=== PATIENT | female | born 1955 | race Caucasian/White ===

== ENCOUNTER → 2020-05-16 | Outpatient (CLI) | payer OTHER ==
[2014-12-21 10:46] VITALS: BP 112/53
[~2020-05-16] MED LIST: ALPR0.5T6 PO; CRESTOR5 MG PO; METO25TA4 PO; TIOT18CA IH
--- NOTE | 2020-05-16 16:59 | CARD ---
MR#: [id number] Date of Study: 05/16/2020 Ordering Physician: CORI THORNTON, Referring Physician: CORI THORNTON, Tech: Radha Casas APPROVED REPORT EXAM: Two-dimensional and M-mode echocardiogram with Doppler and color Doppler. Other Information Quality : AverageHR: 70bpm INDICATION COPD Atrial Fibrillation RISK FACTORS Hyperlipidemia Smoking 2D DIMENSIONS RVDd2.6 (2.9-3.5cm)Left Atrium(2D)2.1 (1.6-4.0cm) IVSd0.7 (0.7-1.1cm)Aortic Root(2D)2.7 (2.0-3.7cm) LVDd4.2 (3.9-5.9cm)LVOT Diameter2.0 (1.8-2.4cm) PWd0.7 (0.7-1.1cm)LVDs2.1 (2.5-4.0cm) FS (%) 50.6 %SV66.3 ml Aortic Valve AoV Peak Rafal.143.4cm/sAoV VTI31.1cm AO Peak GR.8.2mmHgLVOT Peak Rafal.131.0cm/s LVOT VTI 29.88cmAO Mean GR.4mmHg LAYLA (VMAX)2.21lx9IWD (VTI)3.05cm2 AI P 1/2 Oulz309co Mitral Valve MV E Cxjvdnyj07.5cm/sMV E Peak Gr.86mmHg MV DECEL [id number] A Hhgyqrsm611.5cm/s MV E Mean Gr.4mmHgMV CYJ89fr E/A Ratio0.8MVA (PHT)3.18cm2 TDI E/Lateral E'22.4E/Medial E'12.5 Pulmonary Valve PV Peak Ruhfzgrm95.6cm/sPV Peak Grad.2mmHg Tricuspid Valve TR P. Vugoxndg100lf/sRAP PORTJVQN0yvAw TR Peak Gr.41gsUeYPOQ25enDg Pulmonary Vein S1 Ovfhzkyi87.2cm/sD2 Vnskfjnk74.8cm/s PVa [id number] LEFT VENTRICLE The left ventricle is normal size. There is borderline concentric left ventricular hypertrophy. The l eft ventricular systolic function is low normal. The Ejection Fraction is estimated at 50%. There is normal LV segmental wall motion. Transmitral Doppler flow pattern is Grade I-abnormal relaxation selin coby. RIGHT VENTRICLE The right ventricle is normal size. There is normal right ventricular wall thickness. The right ventr icular systolic function is normal. ATRIA The left atrium size is normal. The right atrium size is normal. The interatrial septum is intact wit h no evidence for an atrial septal defect or patent foramen ovale as noted on 2-D or Doppler imaging. AORTIC VALVE The aortic valve is thickened but opens well. Doppler and Color Flow revealed mild aortic regurgitati on. There is no significant aortic valvular stenosis. Calculated aortic valve area is 2.95 cm2 with m aximum pressure gradient of 10 mmHg and mean pressure gradient of 5 mmHg. MITRAL VALVE The mitral valve is thickened but opens well. There is no evidence of mitral valve prolapse. There is no mitral valve stenosis. Doppler and Color-flow revealed trace to mild mitral regurgitation. TRICUSPID VALVE The tricuspid valve is normal in structure and function. Doppler and Color Flow revealed trace tricus pid regurgitation with an estimated PAP of 30 mmHg. There is no tricuspid valve stenosis. PULMONIC VALVE The pulmonic valve is not well visualized. Doppler and Color Flow revealed trace pulmonic valvular re gurgitation. GREAT VESSELS The aortic root is normal in size. The IVC is normal in size and collapses >50% with inspiration. PERICARDIAL EFFUSION There is no evidence of significant pericardial effusion. Critical Notification Critical Value: No <Conclusion> The left ventricle is normal size. The left ventricular systolic function is low normal. The Ejection Fraction is estimated at 50%. There is borderline concentric left ventricular hypertrophy. Doppler and Color Flow revealed mild aortic regurgitation. There is no significant aortic valvular stenosis. Doppler and Color-flow revealed trace to mild mitral regurgitation. Doppler and Color Flow revealed trace tricuspid regurgitation with an estimated PAP of 30 mmHg. Signed by : Cori Thornton MD Electronically Approved : 05/16/2020 16:58:46
== END | disposition home or self-care (01) ==
LOC: ECHO 08:44
PROVIDERS: ATTEND Internal Medicine Cardiovascular Disease
DX: I08.0 Rheumatic disorders of both mitral and aortic valves (principal); J44.9 Chronic obstructive pulmonary disease, unspecified
CPT/HCPCS: 93306